=== PATIENT | female | born 1965 | race Caucasian/White ===

== ENCOUNTER → 2017-04-04 | Outpatient (CLI) | payer SELFPAY ==
--- NOTE | 2017-04-04 09:44 | US ---
EXAMINATION TYPE: US abdomen complete DATE OF EXAM: 04/04/2017 COMPARISON: NONE CLINICAL HISTORY: K81.0 Acute cholelithiasis, K59 Constipation. Pain x 5days. EXAM MEASUREMENTS: Liver Length: 16.1 cm Gallbladder Wall: 0.2 cm CBD: 0.4 cm Spleen: 8.8 cm Right Kidney: 10.8 x 3.2 x 3.9 cm Left Kidney: 10.1 x 5.0 x 3.5 cm Pancreas: wnl Liver: wnl Gallbladder: wnl Evidence for sonographic Cardoza's sign: No CBD: wnl Spleen: wnl Right Kidney: wnl Left Kidney: wnl Upper IVC: wnl Abd Aorta: wnl The liver is homogenous. The intrahepatic portion of the IVC and proximal abdominal aorta are within normal limits. There is no evidence of cholelithiasis. Common bile duct is unremarkable. The visu alized portions of the pancreas are homogenous. The spleen is unremarkable. Kidneys are symmetric a nd free of hydronephrosis. No renal lesions are seen. IMPRESSION: 1. No acute process.
== END | disposition home or self-care (01) ==
LOC: RADUSWWP 08:05
PROVIDERS: ATTEND Family Medicine
DX: K81.0 Acute cholecystitis (principal); K59.00 Constipation, unspecified
CPT/HCPCS: 76700